=== PATIENT | female | born 1990 | race Caucasian/White ===

== ENCOUNTER 2023-11-11 09:40 | Day surgery (SDC) | payer OTHER ==
[~2023-11-11] VITALS: Ht 160 cm; Wt 63.0 kg
[2023-11-11] MEDS ORDERED: fentaNYL citrate 0.05 MG/ML VIAL ONE (11:03)
[2023-11-11] MEDS ORDERED: ROCURONIUM 50 MG/5 ML VIAL IV ONE (11:04)
[2023-11-11] MEDS ORDERED: PROPOFOL 200 MG/20 ML VIAL IV ONE (11:04)
[2023-11-11] MEDS ORDERED: SEVOFLURANE 250 ML BTL INH ONE (11:21)
[2023-11-11] MEDS ORDERED: GLYCOPYRROLATE 0.2 MG/ML VIAL ONE (11:21)
[2023-11-11] MEDS ORDERED: LIDOCAINE MPF 2% 100 MG/5 ML VIAL INJ ONE (11:41)
[2023-11-11] MEDS ORDERED: DEXAMETHASONE 4 MG/ML VIAL ONE ×2 (11:56)
[2023-11-11] MEDS ORDERED: diphenhydrAMINE 50 MG/ML VIAL ONE ×2 (11:56)
[2023-11-11] MEDS: BUPIVACAINE-MPF 0.25% 30 ML VIAL INJ ONE (12:12)
[2023-11-11] MEDS ORDERED: KETOROLAC 30 MG/ML VIAL ONE (12:16)
[2023-11-11] MEDS ORDERED: HYDROmorphone 1 MG/ML AMP IVP PRN (12:35)
[2023-11-11] MEDS ORDERED: ONDANSETRON 4 MG/2 ML VIAL IVP PRN (12:35)
[2023-11-11] MEDS ORDERED: MEPERIDINE 25 MG/ML SYR IVP PRN (12:35)
== END 2023-11-11 14:15 | disposition home or self-care (01) ==
LOC: MDS 09:40 → MMU 09:42 → MDS 14:15
PROVIDERS: ATTEND Obstetrics & Gynecology
DX: Z30.2 Encounter for sterilization (principal); J45.909 Unspecified asthma, uncomplicated; Z82.5 Family history of asthma and other chronic lower respiratory diseases; Z79.899 Other long term (current) drug therapy; Z98.890 Other specified postprocedural states
CPT/HCPCS: 58670; J1100; J1200; J1885; J2001; J2704; J2710; J3010; J3490